=== PATIENT | female | born 1950 | race Caucasian/White ===

== ENCOUNTER → 2021-09-25 | Outpatient (CLI) | payer OTHER, MEDICARE ==
[~2021-09-25] MED LIST: DOXYCYCLINE 10100 MG PO; FIBER TABS625 MG PO; HYDROCODONE-AP1 EAC6 PO; LEVOTHYROXINE 0.1 MG PO; LISINOPRIL20 MG PO; METFORMIN HCL500 MG PO; MIRALAX17 GM PO; OXYBUTYNIN 5 MG5 M2 PO; PRESERVISION T1 EACH PO; PROZAC10 MG PO; TRAMADOL 50 MG50 MG PO; UNICOMPLEX M TA1 TA1 PO; VITAMIN D2000 UNIT PO; XANAX 0.25 MG0.25 MG PO
--- NOTE | 2021-09-30 13:08 | PATH ---
[facility] [address] [place] [address] PATHOLOGY RPT PROCEDURE Name: EDGAR VEGATRACEY Bush Room #: REG CLARITA Peck.#: [id number] Admission: 09/25/21 Date of : 46 Discharge: Report #: [id number] Path Case #: [id number] [facility] Accession Number: [id number] . 01 Material submitted: . breast - UPPER OUTER RIGHT BREAST. Modifiers: right . 01 Clinical history: . RIGHT BREAST CALICIFICATIONS . 02 Diagnosis: Breast "right upper outer quadrant calcifications", Mammotome biopsy: - Focal area of coarse calcification, with associated chronic inflammation and foreign body giant cell response. - Focal fine microcalcifications. - Fibrocystic changes, including of dense fibrosis and focal usual ductal hyperplasia. - Negative for atypia and malignancy. (ESTEFANI:valentino; 09/29/2021) MBR 09/30/2021 1219 Local . 02 Comment: The case is seen in co-review, with consensus, by Dr. Ariana Francisco on 09/30/2021. . 02 Electronically signed: . Pam Mahoney MD, Pathologist NPI- [id number] . 01 Gross description: . The specimen is received in formalin, labeled "Agusitna Vega, right". The specimen is additionally labeled on the requisition as, "right breast calcifications". Received in a white unlabeled cassette are 3 cylindrical, gonzalez-pink to yellow, fibrofatty pieces of tissue, ranging in length from 2.4-4.5 cm, and ranging in diameter from 0.2-0.5 cm. The contents of the white cassette is transferred to cassette A1. . Also included in the specimen container are 5 vaguely cylindrical, gonzalez-pink to yellow, fibrofatty pieces of tissue, ranging in length from 2.4-4.3 cm, and ranging in diameter from 0.2-0.6 cm. The remaining specimen is entirely submitted in cassettes A2-A3. . The specimen is removed from the patient at 1401 and placed in formalin at 1410 on 09/25/2021. The specimen is removed from formalin at 2140 on 09/25/2021. The specimen is in formalin for greater than 6 hours and less than 72 hours. (KATI; 09/25/2021) [address] [address] PATHOLOGY RPT PROCEDURE Name: AGUSTINA VEGA Room #: REG CLI Eboni#: [id number] Admission: 09/25/21 Date of : 46 Discharge: Report #: [id number] Path Case #: [id number] JGG/[id number] 09/25/2021 1750 Local . 02 Microscopic: . Immunohistochemical stain results (properly controlled): . Block A1 AE1/AE3 - highlights rare cells in area of coarse calcification. CK5/6 - highlights rare positive cells in area of coarse calcification. ER - negative in area of coarse calcification. P63 - highlights myoepithelial cells in the area of coarse calcification. Myosin - highlights myoepithelial cells in area of coarse calcification. . (LAURENK:valentino; 09/29/2021) . 02 Pathologist provided ICD-10: N61.0, N60.31, N62 . 02 CPT . 879369, [id number], [id number] Specimen Comment: A courtesy copy of this report has been sent to [phone] Specimen Comment: Report sent to Performed at: 01 [facility] [address] [id number] MD Miguel Hadley MD Phone: [phone] Performed at: 02 [facility] [address] [id number] MD Raheem Guzman MD Phone: [phone]
== END ==
LOC: BC 12:57
DX: R92.1 Mammographic calcification found on diagnostic imaging of breast (principal); N60.31 Fibrosclerosis of right breast; R92.8 Other abnormal and inconclusive findings on diagnostic imaging of breast; Z79.899 Other long term (current) drug therapy